=== PATIENT | male | born 2000 | race African-American/Black ===

== ENCOUNTER 2023-09-06 11:35 | Inpatient (IN) | payer OTHER ==
[2023-09-06 12:33] VITALS: BMI 26.3
[2023-09-06] MEDS ORDERED: LOPERAMIDE HCL 2 MG CAPSULE PO PRN (13:17)
[2023-09-06] MEDS ORDERED: IBUPROFEN 400 MG TABLET (FP) PO PRN (13:17)
[2023-09-06] MEDS ORDERED: POLYETHYLENE GLYCOL (HEALTHYLAX) 3350 17 GM PACKET PO PRN (13:17)
[2023-09-06] MEDS ORDERED: NICOTINE POLACRILEX 2 MG GUM BUC PRN (13:17)
[2023-09-06] MEDS ORDERED: BENZONATATE 200 MG CAPSULE PO PRN (13:17)
[2023-09-06] MEDS ORDERED: guaiFENesin 600 MG TABLET.ER (FP) PO PRN (13:17)
[2023-09-06] MEDS ORDERED: NALOXONE HCL (KLOXXADO) 8 MG SPRAY NS PRN (13:17)
[2023-09-06] MEDS ORDERED: BENZOCAINE/MENTHOL (CHLORASEPTIC ) LOZENGE MM PRN (13:17)
[2023-09-06] MEDS ORDERED: ACETAMINOPHEN 325 MG TABLET (FP) PO PRN (13:17)
[2023-09-06] MEDS ORDERED: NALOXONE HCL 0.4 MG/ML VIAL IM PRN (13:17)
[2023-09-06] MEDS ORDERED: MAGNESIUM HYDROX 2400MG/30ML ORAL SUSPENSION 30 ML CUP PO PRN (13:17)
[2023-09-06] MEDS ORDERED: PRENATAL VITAMINS W/ FOLIC ACID TABLET (FP) PO ONE (14:53)
[2023-09-06] MEDS: PRENATAL VITAMINS W/ FOLIC ACID TABLET (FP) PO SCH (14:54)
[2023-09-06] MEDS: MELATONIN 5 MG TABLETS PO SCH (21:41)
[2023-09-06] MEDS: THIAMINE 100 MG TABLET PO SCH (21:41)
[2023-09-06 22:55] LABS: EPI CELLS 9 /uL (0-25.1); HYALINE CASTS 5 /uL (0-3.1); URINE APPEARANCE TURBID; URINE BACTERIA 16 /uL (0-1359); URINE BILIRUBIN NEGATIVE (NEGATIVE); URINE COLOR YELLOW; URINE GLUCOSE (UA) NEGATIVE (NEGATIVE); URINE KETONE NEGATIVE (NEGATIVE); URINE LEUK ESTERASE TRACE (NEGATIVE); URINE NITRITE NEGATIVE (NEGATIVE); URINE PROTEIN NEGATIVE (NEGATIVE); URINE RBC 29 /uL (0-23.9); URINE WBC 55 /uL (0-25.8)
[2023-09-07 11:59] LABS: HEMATOCRIT 37.2 % (35.4-49); HEMOGLOBIN 12.9 GM/dL (11.7-16.9); MCH 32.2 pg (25.7-33.7); MCHC 34.5 g/dl (32.0-35.9); MEAN CELL VOLUME 93.3 fl (80-96); MEAN PLT VOLUME 8.8 fl (7.5-11.1); PLATELET COUNT 178 10^3/uL (134-434); RBC 3.99 M/mm3 (4.00-5.60); RDW 12.8 % (11.9-15.9); WHITE BLOOD COUNT 4.3 K/mm3 (4.0-10.0)
[2023-09-07 12:04] LABS: POTASSIUM 3.5 mmol/L (3.5-5.1)
[2023-09-07 12:09] LABS: CALCIUM 8.6 mg/dL (8.5-10.1)
[2023-09-07 12:11] LABS: ALBUMIN 3.3 g/dl (3.4-5.0); BLOOD UREA NITROGEN 7.2 mg/dL (7-18)
[2023-09-07 12:13] LABS: CREATININE 0.8 mg/dL (0.55-1.3)
[2023-09-07 12:15] LABS: TOT PROT 6.7 g/dl (6.4-8.2)
[2023-09-07 12:16] LABS: BILIRUBIN,TOTAL 0.4 mg/dL (0.2-1)
[2023-09-07 13:14] LABS: SYPHILIS W/ RPR CONF NON-REACTIVE (NONREACTIVE)
[2023-09-07] MEDS: OLANZapine 5 MG TABLET PO SCH (21:33)
[2023-09-07] MEDS ORDERED: OLANZapine 10 MG TABLET PO SCH (22:00)
[2023-09-08] MEDS: IBUPROFEN 600 MG TABLET (FP) PO PRN (11:38)
[2023-09-09] MEDS: MAG HYDROX/AL HYDROX/SIMETH 30 ML UNIT-DOSE CUP PO PRN (10:12)
[2023-09-09] MEDS: hydrOXYzine PAMOATE 25 MG CAPSULE (FP) PO PRN (21:15)
[2023-09-12] MEDS: ALBUTEROL SO4 HFA INHALER IH PRN (18:42)
[2023-09-14] MEDS: OLANZapine 10 MG TABLET PO SCH (21:51)
[2023-09-15] MEDS: BACLOFEN 10 MG TABLET (FP) PO SCH (21:44)
[2023-09-20 07:04] VITALS: BP 118/77; PULSE 82; RESP 17; TEMP 97.9
== END 2023-09-20 09:58 | disposition home or self-care (01) | DRG 772 ==
LOC: YASAS 11:35 → Y3NR 16:33 → Y5N 09-07 19:27
PROVIDERS: ADMIT Allergy & Immunology; ATTEND Psychiatry & Neurology Pain Medicine
PROC: HZ42ZZZ Group Counseling for Substance Abuse Treatment, Cognitive-Behavioral (ICD-10-PCS; principal; 2023-09-06)
DX: F11.20 Opioid dependence, uncomplicated (principal); F14.20 Cocaine dependence, uncomplicated; F12.10 Cannabis abuse, uncomplicated; F17.210 Nicotine dependence, cigarettes, uncomplicated; F25.9 Schizoaffective disorder, unspecified; F31.9 Bipolar disorder, unspecified; F19.24 Other psychoactive substance dependence with psychoactive substance-induced mood disorder; F41.1 Generalized anxiety disorder; I10 Essential (primary) hypertension; J45.909 Unspecified asthma, uncomplicated; Z88.0 Allergy status to penicillin
CPT/HCPCS: 36415; 80053; 80305; 80307; 81003; 82962; 85027; 86780; 86803; 87811; 93005; 93010; J0475